=== PATIENT | female | born 2005 | race Caucasian/White ===

== ENCOUNTER 2023-12-15 07:40 | Inpatient (IN) | payer OTHER ==
[2023-12-15] MEDS ORDERED: DEXTROSE 5%-LACTATED RINGERS 1,000 ML IV SCH (08:45)
[2023-12-15] MEDS: ELECTROLYTE-148 SOLN 1,000 ML IV SCH (09:15)
[2023-12-15 09:21] LABS: INR 0.89 (0.83-1.09); PROTHROMBIN TIME (PATIENT) 10.3 SEC (9.7-13.0)
[2023-12-15 09:23] LABS: ACTIVATED PTT 26.8 SECONDS (25.2-36.5)
[2023-12-15 09:25] LABS: BASO % 0.1 % (0-2.0); EOS % 0.4 % (0-4.5); HEMATOCRIT 38.9 % (32.4-45.2); HEMOGLOBIN 13.3 GM/dL (10.7-15.3); LYMPH % 17.8 % (8-40); MCH 29.6 pg (25.7-33.7); MCHC 34.2 g/dl (32.0-36.0); MEAN CELL VOLUME 86.5 fl (80-96); MEAN PLT VOLUME 8.4 fl (7.5-11.1); MONO % 7.3 % (3.8-10.2); NEUT % 74.4 % (42.8-82.8); PLATELET COUNT 178 10^3/uL (134-434); RDW 12.6 % (11.6-15.6); WHITE BLOOD COUNT 10.4 K/mm3 (4.0-10.0)
[2023-12-15 09:38] LABS: CHLORIDE 110 mmol/L (98-107); POTASSIUM 3.8 mmol/L (3.5-5.1); SODIUM 137 mmol/L (136-145)
[2023-12-15 09:39] LABS: CALCIUM 8.7 mg/dL (8.5-10.1)
[2023-12-15 09:40] LABS: ANION GAP 7 mmol/L (4-13); BLOOD UREA NITROGEN 6.5 mg/dL (7-18); CO2 21 mmol/L (21-32); GLUCOSE,RANDOM 80 mg/dL (74-106)
[2023-12-15 09:43] LABS: CREATININE 0.4 mg/dL (0.55-1.3)
[2023-12-15 10:19] VITALS: BMI 28.3
[2023-12-15] MEDS: OXYTOCIN 30 UNITS in 0.9% NS 30 UNIT/500 ML INFUS.BAG IVPB SCH (10:20)
[2023-12-15] MEDS ORDERED: AMPICILLIN SODIUM 2 GM VIAL ONE (11:00)
[2023-12-15] MEDS: AMPICILLIN - 2 GM in SODIUM CHLORIDE 100 ML IVPB ONE (11:00)
[2023-12-15] MEDS ORDERED: FENTANYL/BUPIVACAINE/NS/PF - PCEA - 50 ML DISP.SYRIN EP ONE ×2 (12:44→17:40)
[2023-12-15] MEDS: FENTANYL/BUPIVACAINE/NS/PF - PCEA - 50 ML DISP.SYRIN EP SCH (13:10)
[2023-12-15] MEDS ORDERED: NALOXONE HCL 0.4 MG/ML VIAL IVPUSH PRN (14:36)
[2023-12-15] MEDS ORDERED: AMPICILLIN SODIUM 1 GM VIAL ONE ×2 (14:38→18:34)
[2023-12-15] MEDS: AMPICILLIN - 1 GM in SODIUM CHLORIDE 100 ML IVPB SCH (14:40)
[2023-12-15] MEDS ORDERED: LIDOCAINE HCL 1% PRESERVATIVE FREE - 30ML VIAL ONE (20:03)
[2023-12-15] MEDS ORDERED: OXYTOCIN 20 UNITS in 0.9% NS 20 UNIT/1,000 ML INFUS.BAG IV ONE (20:03)
[2023-12-15] MEDS ORDERED: WITCH HAZEL 50% (TUCKS) 40 PAD/JAR PAD TP PRN (20:12)
[2023-12-15] MEDS ORDERED: IBUPROFEN 600 MG TABLET (FP) PO PRN (20:12)
[2023-12-15] MEDS ORDERED: BENZOCAINE 28 GM HEMORRHOIDAL OINTMENT TP PRN (20:12)
[2023-12-15] MEDS ORDERED: BISACODYL 10 MG SUPP.RECT RC PRN (20:12)
[2023-12-15] MEDS ORDERED: oxyCODONE HCL 5 MG TABLET PO PRN (20:12)
[2023-12-15] MEDS ORDERED: ACETAMINOPHEN 325 MG TABLET (FP) PO PRN (20:12)
[2023-12-15] MEDS ORDERED: METHYLERGONOVINE MALEATE 0.2 MG/1 ML AMP IM PRN (20:12)
[2023-12-15] MEDS ORDERED: BENZOCAINE 20% 57 GM BOTTLE TP PRN (20:12)
[2023-12-15] MEDS: OXYTOCIN 20 UNITS in 0.9% NS 20 UNIT/1,000 ML INFUS.BAG IV SCH (21:06)
[2023-12-15 21:49] VITALS: RESP 18
[2023-12-15 22:31] LABS: HIV INTERPRETATION NEGATIVE (NEGATIVE)
[2023-12-16 06:23] LABS: BASO % 0.1 % (0-2.0); EOS % 0.1 % (0-4.5); HEMATOCRIT 34.7 % (32.4-45.2); HEMOGLOBIN 11.7 GM/dL (10.7-15.3); LYMPH % 14.4 % (8-40); MCH 29.6 pg (25.7-33.7); MCHC 33.8 g/dl (32.0-36.0); MEAN CELL VOLUME 87.6 fl (80-96); MEAN PLT VOLUME 8.5 fl (7.5-11.1); MONO % 5.4 % (3.8-10.2); PLATELET COUNT 156 10^3/uL (134-434); RBC 3.96 M/mm3 (3.60-5.2); RDW 12.9 % (11.6-15.6); WHITE BLOOD COUNT 13.2 K/mm3 (4.0-10.0)
[2023-12-16] MEDS: BUTORPHANOL TARTRATE 2 MG/ML VIAL IVPB ONE (07:01)
[2023-12-16] MEDS: PROMETHAZINE HCL 25 MG/1 ML VIAL IVPB ONE (07:02)
[2023-12-16] MEDS: FERROUS SO4 325 MG TABLET (FP) PO SCH (09:11)
[2023-12-16] MEDS: PRENATAL VITAMINS W/ FOLIC ACID TABLET (FP) PO SCH (09:11)
[2023-12-16] MEDS ORDERED: SENNOSIDES/DOCUSATE COMBO (SENNA PLUS) TABLET (UD) PO PRN (22:00)
[2023-12-17 09:13] VITALS: BP 109/59; PULSE 79; TEMP 97.9
== END 2023-12-17 20:40 | disposition home or self-care (01) | DRG 560 ==
LOC: JDEL 07:40 → JLDR 08:25 → J3W 12-16 00:01
PROVIDERS: ADMIT Obstetrics & Gynecology; ATTEND Obstetrics & Gynecology
PROC: 10E0XZZ Delivery of Products of Conception, External Approach (ICD-10-PCS; principal; 2023-12-15)
PROC: 0HQ9XZZ Repair Perineum Skin, External Approach (ICD-10-PCS; 2023-12-15)
DX: O48.0 Post-term pregnancy (principal); O99.824 Streptococcus B carrier state complicating childbirth; O70.0 First degree perineal laceration during delivery; Z3A.41 41 weeks gestation of pregnancy; Z37.0 Single live birth
CPT/HCPCS: 36415; 59025; 59409; 80048; 85025; 85610; 85730; 86780; 86803; 86850; 86900; 86901; 87389